=== PATIENT | male | born 1960 | race Caucasian/White ===

== ENCOUNTER 2020-02-29 11:12 | Inpatient (IN) | payer OTHER, SELFPAY ==
[2020-02-29] VITALS (27 sets, daily range): BP systolic 110–141; BP diastolic 56–82; PULSE 72–105; RESP 11–24; TEMP 36.3–38.3; O2SAT 92–99; BMI 45.1
--- NOTE | 2020-02-29 | PATH_ITS ---
[facility] Accession Number: [id number] . 01 Material submitted: . appendix - APPENDIX . 02 Diagnosis: Appendix, Appendectomy: Acute suppurative appendicitis with serositis. Negative for dysplasia and malignancy. V 03/02/2020 1235 Local . 02 Electronically signed: . Jelena Mg MD, Pathologist NPI- [id number] . 01 Gross description: . Received in formalin, labeled appendix, is an intact appendix (length-6.8 cm, diameter-1.0 cm) with ulloa-pink, dull, smooth, focally exudate-covered serosa with attached mesoappendix (up to 2.5 cm in depth). The resection margin is received open. The lumen is void of contents. The wall is up to 0.1 cm thick. No nodules, masses or lesions are identified. The resection margin is inked blue. Section code: (A1) resection margin en face and four industrial relations representative serial sections; (A2) the bivalved tip, entirely submitted. ([id number]) /MRV 03/01/2020 1030 Local . 02 Pathologist provided ICD-10: K35.80 . 02 CPT . 138211 Performed at: 01 [facility] [address], [place], [place] [id number] MD Vince London MD Phone: [phone] Performed at: [address] [facility] [address] [place], [place] [id number] MD Jelena Mg MD Phone: [phone]
--- NOTE | 2020-02-29 11:56 | ED.ABDPAIN ---
HPI - Abdominal Pain <Regulo Martin [facility] - Last Filed: 02/29/20 13:56> General Chief Complaint: Abdominal Pain Stated Complaint: abdominal pressure/pain Time Seen by Provider: 02/29/20 11:30 Source: patient Mode of arrival: Ambulatory Limitations: no limitations History of Present Illness HPI narrative: This is a 59-year-old male, nonsmoker, who presents to ED with 2 day duration of abdominal discomfort. Patient reports hurts all over but worse in right lower quadrant pain. Patient reports he now has constant dull throbbing abdominal pain with intermittent sharp pain in right lower quadrant. Patient reports nausea but no vomiting. Reports pain worse with movement, walking, getting in and out of bed. Last night pain was so bad he was doubled up until 3:00 a.m.. Patient reports none appetite and after he had last meal at 3:00 p.m. yesterday pain became worse. Last bowel movement was yesterday in small amount and he usually has bowel movements good bowel movements twice a day on the clock. Patient reports previous surgery as prostate and had surgery 12 years ago. At that time, patient had urinary retention and lost bladder elasticity and now he self cath himself in the morning and evening twice a day. Patient denies other urinary symptoms. Patient is visiting his son and family from [place]. Related Data Allergies Allergy/AdvReac Type Severity Reaction Status Date / Time No Known Drug Allergies Allergy Verified 02/29/20 11:29 Review of Systems <Regulo Martin [facility] - Last Filed: 02/29/20 13:56> Review of Systems Narrative: General: Denies fever, chills, fatigue, malaise, sweats. HEENT: Denies sinus pain, ear pain, sore throat, difficulty swallowing, dizziness. Respiratory: Denies dyspnea, cough, wheezing, hemoptysis, sputum. Cardiovascular: Denies chest pain, palpitations, orthopnea, edema. Gastrointestinal: See HPI : Denies dysuria, frequency, incontinence, hematuria, urinary retention. Musculoskeletal: Denies weakness, joint pain or bony pain. Skin: Denies rash, skin lesions, or other. Neurologic: Denies weakness, headache, numbness, change in speech, confusion, seizures, incoordination. Psychiatric: No concerning psychosocial issues. 12-point review of systems is negative except for those stated above. Patient History <KARENA Hartman - Last Filed: 02/29/20 13:56> Medical History Urinary retention (Acute) Surgical History History of prostate surgery (Acute) Social History Smoking Status: Never smoker Smoking Status: Never smoker alcohol intake frequency: a few times a week Alcohol type: beer Substance Use Type: does not use Exam <KARENA Hartman - Last Filed: 02/29/20 13:56> Narrative Exam Narrative: GEN: Alert, oriented x 3, well appearing and nourished, and in no acute distress. Head: Normal cephalic, atraumatic. No scalp or temporal tenderness, palpable mass or rash. EYES: Pupils are equal, round, and reactive to light and accommodation. Extraocular muscles are intact bilaterally. There is no subconjunctival hemorrhage, exudate and sclera non-icteric. ENT: Hearing grossly intact. Nose without bleeding, purulent discharge or deviation. Facial sinuses nontender to palpate. Mucous membrane moist, no mucosal lesion. Throat without erythema, tonsillar hypertrophy or exudate. Uvula in midline, airway patent. Neck: Trachea in midline. No JVD, non-tender without lymphadenopathy. No masses or thyroid megaly. Supple, non-tender and no meningeal signs. CARDIAC: Normal regular rate and rhythm without murmurs, gallops, or rubs. No chest wall tenderness. No peripheral edema, cyanosis or pallor. Capillary refill is less than 2 seconds. RESPIRATORY: Lungs are clear to auscultate bilaterally. No cough, wheezes, rales, or rhonchi. No stridor, respiratory distress, increase work of breathing, or accessary muscle used. ABD: Abdomen soft, tender to palpate in right quadrants and rebound tenderness in right mid and low quadrants. No guarding.. Bowel sounds are normal in all 4 quadrants. There is no palpable masses or organomegaly. EXT: Full painless ROM of all extremities with no loss of sensation, strength, effusion or edema. SKIN: Warm, dry, normal color for patient. No erythema, lesions or rash over visible areas. BACK: Nontender without deformity or crepitance. No flank tenderness. NEUROLOGICAL: Alert and oriented to place, time and person. Sensation and motor function intact bilaterally. No facial droops, dysphasia. PSYCHIATRIC: Good judgement and reason, without hallucinations, abnormal affect or abnormal behaviors during the examination. Initial Vital Signs Initial Vital Signs: Vital Signs Temperature 99.7 F H 02/29/20 11:23 Pulse Rate 89 02/29/20 11:23 Respiratory Rate 22 02/29/20 11:23 Blood Pressure 141/75 H 02/29/20 11:23 Pulse Oximetry 99 02/29/20 11:23 <Sanjay Stevenson DO - Last Filed: 02/29/20 14:19> Initial Vital Signs Initial Vital Signs: Vital Signs Temperature 99.7 F H 02/29/20 11:23 Pulse Rate 89 02/29/20 11:23 Respiratory Rate 22 02/29/20 11:23 Blood Pressure 141/75 H 02/29/20 11:23 Pulse Oximetry 99 02/29/20 11:23 Scores <KARENA Hartman - Last Filed: 02/29/20 13:56> GCS Alian coma scale eye opening: Spontaneous Alina coma scale verbal response: Orientated Alina coma scale motor response: Obey commands Dunlap coma scale total score: 15 Course <KARENA Hartman - Last Filed: 02/29/20 13:56> Course Decision to Admit Date: 02/29/20 Decision to Admit time: 13:35 Orders Ordered: ED Orders 02/29/20 11:30 EKG-12 Lead Stat 02/29/20 12:00 Complete Blood Count AUTO DIFF Stat Comprehensive Metabolic Panel Stat Lactate (Lactic Acid) Stat Lipase Stat Partial Thromboplastin Time Stat Prothrombin Time INR Stat 02/29/20 12:35 CT abdomen pelvis w con Stat Sodium Chloride (Normal Saline 0.9%) 1,000 mls @ 150 mls/hr IV CONT YURIDIA Last Admin: 02/29/20 14:17 Dose: 150 mls/hr Documented by: YDAY Discontinued Medications Piperacillin/Tazobactam/Dextrose (Zosyn) 3.375 gm in 50 mls @ 100 mls/hr IV NOW ONE Stop: 02/29/20 14:02 Last Admin: 02/29/20 14:17 Dose: 100 mls/hr Documented by: JESÚS Ketorolac Tromethamine (Toradol) 15 mg IV NOW ONE Stop: 02/29/20 11:53 Last Admin: 02/29/20 12:53 Dose: 15 mg Documented by: CHARLA Consultations Consultation #1: Dr. Abdi kindly accepted the patient for acute appendicitis for OR later today and admit the patient to medical in-pt Time: 13:37 Vital Signs Vital signs: Vital Signs - 8 hr 02/29/20 11:23 02/29/20 11:30 02/29/20 12:00 Temperature 99.7 F H Pulse Rate 89 82 86 Respiratory Rate 22 12 24 Blood Pressure 141/75 H Blood Pressure [Right Arm] 134/71 128/77 Pulse Oximetry 99 96 99 02/29/20 12:30 02/29/20 13:30 Temperature Pulse Rate 81 76 Respiratory Rate 17 17 Blood Pressure Blood Pressure [Right Arm] 133/66 128/71 Pulse Oximetry 96 99 <Sanjay Stevenson DO - Last Filed: 02/29/20 14:19> Orders Ordered: ED Orders 02/29/20 11:30 EKG-12 Lead Stat 02/29/20 12:00 Complete Blood Count AUTO DIFF Stat Comprehensive Metabolic Panel Stat Lactate (Lactic Acid) Stat Lipase Stat Partial Thromboplastin Time Stat Prothrombin Time INR Stat 02/29/20 12:35 CT abdomen pelvis w con Stat Sodium Chloride (Normal Saline 0.9%) 1,000 mls @ 150 mls/hr IV CONT YURIDIA Last Admin: 02/29/20 14:17 Dose: 150 mls/hr Documented by: JESÚS Discontinued Medications Piperacillin/Tazobactam/Dextrose (Zosyn) 3.375 gm in 50 mls @ 100 mls/hr IV NOW ONE Stop: 02/29/20 14:02 Last Admin: 02/29/20 14:17 Dose: 100 mls/hr Documented by: JESÚS Ketorolac Tromethamine (Toradol) 15 mg IV NOW ONE Stop: 02/29/20 11:53 Last Admin: 02/29/20 12:53 Dose: 15 mg Documented by: CHARLA Vital Signs Vital signs: Vital Signs - 8 hr 02/29/20 11:23 02/29/20 11:30 02/29/20 12:00 Temperature 99.7 F H Pulse Rate 89 82 86 Respiratory Rate 22 12 24 Blood Pressure 141/75 H Blood Pressure [Right Arm] 134/71 128/77 Pulse Oximetry 99 96 99 02/29/20 12:30 02/29/20 13:30 Temperature Pulse Rate 81 76 Respiratory Rate 17 17 Blood Pressure Blood Pressure [Right Arm] 133/66 128/71 Pulse Oximetry 96 99 MDM - Abdominal Pain <Regulo KARENA Martin - Last Filed: 02/29/20 13:56> Differential Diagnosis Differential diagnosis: Likely acute appendicitis and small bowel obstruction Medical Records Attestation: I reviewed the patient's medical records. Lab Data Attestation: I reviewed the patient's lab results. Result diagrams: 02/29/20 12:00 02/29/20 12:00 Labs: Lab Results 02/29/20 02/29/20 02/29/20 Range/Units 12:00 12:00 12:00 WBC 12.5 H (4.5-11.0) X10^3/uL RBC 5.06 (4.5-5.9) X10^6/uL Hgb 15.2 (13.5-17.5) g/dL Hct 44.0 (41-53) % MCV 86.9 (80-100) fL MCH 30.1 (26-34) PG MCHC 34.6 (30-36) % RDW 12.3 (11.6-14.8) % Plt Count 178 (150-400) X10^3/uL Neut % (Auto) 84.2 H (50-75) % Lymph % (Auto) 7.2 L (25-40) % [place] % (Auto) 8.0 (3-14) % Eos % (Auto) 0.1 L (2-4) % Baso % (Auto) 0.5 (0-2) % Neut # (Auto) 48810 H (7979-1313) /uL Lymph # (Auto) 900 L (6681-4223) /uL [place] # (Auto) 1000 H (0-900) /uL Eos # (Auto) 0 (0-450) /uL Baso # (Auto) 100 (0-100) /uL PT 13.0 H (10.1-12.7) SECONDS INR 1.1 (0.9-1.3) APTT 35 (26.4-36.2) SECONDS Sodium 135 L (137-145) mmol/L Potassium 4.1 (3.4-5.1) mmol/L Chloride 101 (98-107) mmol/L Carbon Dioxide 25 (22-32) mmol/L BUN 15 (9-20) mg/dL Creatinine 0.73 (0.66-1.25) mg/dL Estimated GFR > 60.0 (>60) mL/min BUN/Creatinine Ratio 20.5 (6-22) Glucose 110 H (70-100) mg/dL Lactate (0.7-2.1) mmol/L Calcium 9.4 (8.4-10.2) mg/dL Total Bilirubin 0.7 (0.2-1.3) mg/dL AST 18 (17-59) IU/L ALT 17 (<50) IU/L Alkaline Phosphatase 45 (38-126) U/L Total Protein 7.4 (6.3-8.2) g/dL Albumin 4.3 (3.5-5.0) g/dL Globulin 3.1 (1.7-4.1) g/dL Albumin/Globulin Ratio 1.4 (1.0-2.8) Lipase 33 (23-300) U/L 02/29/20 Range/Units 12:00 WBC (4.5-11.0) X10^3/uL RBC (4.5-5.9) X10^6/uL Hgb (13.5-17.5) g/dL Hct (41-53) % MCV (80-100) fL MCH (26-34) PG MCHC (30-36) % RDW (11.6-14.8) % Plt Count (150-400) X10^3/uL Neut % (Auto) (50-75) % Lymph % (Auto) (25-40) % [place] % (Auto) (3-14) % Eos % (Auto) (2-4) % Baso % (Auto) (0-2) % Neut # (Auto) (8762-4146) /uL Lymph # (Auto) (8925-6900) /uL [place] # (Auto) (0-900) /uL Eos # (Auto) (0-450) /uL Baso # (Auto) (0-100) /uL PT (10.1-12.7) SECONDS INR (0.9-1.3) APTT (26.4-36.2) SECONDS Sodium (137-145) mmol/L Potassium (3.4-5.1) mmol/L Chloride (98-107) mmol/L Carbon Dioxide (22-32) mmol/L BUN (9-20) mg/dL Creatinine (0.66-1.25) mg/dL Estimated GFR (>60) mL/min BUN/Creatinine Ratio (6-22) Glucose (70-100) mg/dL Lactate 1.3 (0.7-2.1) mmol/L Calcium (8.4-10.2) mg/dL Total Bilirubin (0.2-1.3) mg/dL AST (17-59) IU/L ALT (<50) IU/L Alkaline Phosphatase (38-126) U/L Total Protein (6.3-8.2) g/dL Albumin (3.5-5.0) g/dL Globulin (1.7-4.1) g/dL Albumin/Globulin Ratio (1.0-2.8) Lipase (23-300) U/L Imaging Data CT scan - abdomen/pelvis: Radiologist's Impression: [place] [address] CT Scan Report Signed Patient: Joshua Baig [facility]#: [id number] : 2Acct:[id number] Age/Sex: 59 / MDate of Service: 02/29/20 Loc: ED Accession Number: [id number] Procedure: CT abdomen pelvis w con Ordering Provider: Regulo Martin PROCEDURE: CT ABDOMEN PELVIS W CON INDICATIONS: RLQ pain, mild fever, nausea TECHNIQUE: After the administration of intravenous contrast, 5 mm thick sections acquired from the diaphragm to the symphysis. 5 mm coronal and sagittal reformats were acquired. For radiation dose reduction, the following was used: automated exposure control, adjustment of mA and/or kV according to patient size. COMPARISON: None. FINDINGS: Image quality: Excellent. ABDOMEN: Lung bases: Bibasilar atelectasis. No pleural effusion. Heart size is normal. Solid organs: Liver is normal in size. Question of hepatic steatosis. Gallbladder is unremarkable. Biliary system is non dilated. Pancreas enhances normally. Spleen is normal in size and enhancement. No adrenal nodules. Kidneys demonstrate normal size and enhancement, without hydronephrosis. Peritoneum and bowel: The appendix is dilated up to 2 cm (). There is surrounding inflammatory change and trace fluid. No extraluminal gas. No appendicolith. No small bowel obstruction. Nodes and vessels: No retroperitoneal or mesenteric adenopathy by size criteria. Aorta and inferior vena cava are normal in size. Miscellaneous: Tiny periumbilical fat-containing hernia. 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 PELVIS: Genitourinary: Bladder wall thickness is normal. Prostatomegaly. Miscellaneous: No inguinal hernias or adenopathy. Bones: No suspicious bony lesions. No vertebral body compression fractures. DDD. IMPRESSION: Acute appendicitis, moderate severity. No abscess or extra luminal gas. Dictated by: Ty Wilson M.D. on 02/29/2020 at 13:02 Approved by: Ty Wilson M.D. on 02/29/2020 at 13:07 ECG Data Attestation: I personally reviewed and interpreted this ECG as follows: Prior ECG tracings: not available for review Interpretation: Sinus rhythm rate at 83. UT int 160, QRS dur 105, QT/QTc 331/371. No ST elevation or depression. [facility] Narrative Medical decision making narrative: Abominal exam appreciated right mid and lower quadrant pain to palpate with rebound tenderness. Mildly elevated temperature to 99.7 with normotensive without tachycardia. Leukocytosis of 12.5 with neutrophil elevation. Normal lactate of 1.3. Abdominal CT indicates acute appendicitis without abscess extra luminal gas. There is no small-bowel obstructions. Patient's pain was managed with IV Toradol. Patient is being hydrated with normal saline at 150 mL/hour. Started Zosyn IV antibiotic medication as Dr. Abdi's request. Dr. Abdi kindly accepted patient's care for operation later today. Findings and plan were discussed with the patient and patient agrees with treatment plan. Rapid Covid test added for preop. <Sanjay Stevenson, - Last Filed: 02/29/20 14:19> Lab Data Labs: Lab Results 06/08/20 06/08/20 06/08/20 Range/Units 12:00 12:00 12:00 WBC 12.5 H (4.5-11.0) X10^3/uL RBC 5.06 (4.5-5.9) X10^6/uL Hgb 15.2 (13.5-17.5) g/dL Hct 44.0 (41-53) % MCV 86.9 (80-100) fL MCH 30.1 (26-34) PG MCHC 34.6 (30-36) % RDW 12.3 (11.6-14.8) % Plt Count 178 (150-400) X10^3/uL Neut % (Auto) 84.2 H (50-75) % Lymph % (Auto) 7.2 L (25-40) % [place] % (Auto) 8.0 (3-14) % Eos % (Auto) 0.1 L (2-4) % Baso % (Auto) 0.5 (0-2) % Neut # (Auto) 45031 H (0782-7654) /uL Lymph # (Auto) 900 L (0766-1286) /uL [place] # (Auto) 1000 H (0-900) /uL Eos # (Auto) 0 (0-450) /uL Baso # (Auto) 100 (0-100) /uL PT 13.0 H (10.1-12.7) SECONDS INR 1.1 (0.9-1.3) APTT 35 (26.4-36.2) SECONDS Sodium 135 L (137-145) mmol/L Potassium 4.1 (3.4-5.1) mmol/L Chloride 101 (98-107) mmol/L Carbon Dioxide 25 (22-32) mmol/L BUN 15 (9-20) mg/dL Creatinine 0.73 (0.66-1.25) mg/dL Estimated GFR > 60.0 (>60) mL/min BUN/Creatinine Ratio 20.5 (6-22) Glucose 110 H (70-100) mg/dL Lactate (0.7-2.1) mmol/L Calcium 9.4 (8.4-10.2) mg/dL Total Bilirubin 0.7 (0.2-1.3) mg/dL AST 18 (17-59) IU/L ALT 17 (<50) IU/L Alkaline Phosphatase 45 (38-126) U/L Total Protein 7.4 (6.3-8.2) g/dL Albumin 4.3 (3.5-5.0) g/dL Globulin 3.1 (1.7-4.1) g/dL Albumin/Globulin Ratio 1.4 (1.0-2.8) Lipase 33 (23-300) U/L 02/29/20 Range/Units 12:00 WBC (4.5-11.0) X10^3/uL RBC (4.5-5.9) X10^6/uL Hgb (13.5-17.5) g/dL Hct (41-53) % MCV (80-100) fL MCH (26-34) PG MCHC (30-36) % RDW (11.6-14.8) % Plt Count (150-400) X10^3/uL Neut % (Auto) (50-75) % Lymph % (Auto) (25-40) % [place] % (Auto) (3-14) % Eos % (Auto) (2-4) % Baso % (Auto) (0-2) % Neut # (Auto) (1956-4116) /uL Lymph # (Auto) (1322-7069) /uL [place] # (Auto) (0-900) /uL Eos # (Auto) (0-450) /uL Baso # (Auto) (0-100) /uL PT (10.1-12.7) SECONDS INR (0.9-1.3) APTT (26.4-36.2) SECONDS Sodium (137-145) mmol/L Potassium (3.4-5.1) mmol/L Chloride (98-107) mmol/L Carbon Dioxide (22-32) mmol/L BUN (9-20) mg/dL Creatinine (0.66-1.25) mg/dL Estimated GFR (>60) mL/min BUN/Creatinine Ratio (6-22) Glucose (70-100) mg/dL Lactate 1.3 (0.7-2.1) mmol/L Calcium (8.4-10.2) mg/dL Total Bilirubin (0.2-1.3) mg/dL AST (17-59) IU/L ALT (<50) IU/L Alkaline Phosphatase (38-126) U/L Total Protein (6.3-8.2) g/dL Albumin (3.5-5.0) g/dL Globulin (1.7-4.1) g/dL Albumin/Globulin Ratio (1.0-2.8) Lipase (23-300) U/L Discharge Plan Departure Patient Disposition: Admitted As Inpatient Clinical Impression: Acute appendicitis Qualifiers: Acute appendicitis type: unspecified acute appendicitis type Qualified Code(s): K35.80 - Unspecified acute appendicitis Discharge Date/Time: 02/29/20 13:54 Admit Date/Time: 02/29/20 13:46 Admit Provider: Lionel Abdi <Sanjay Stevenson, - Last Filed: 02/29/20 14:19> Cosign ED Attending Cosignature Attestation: Dr Stevenson Co-Sign Statement: I was available for consultation during this patient's emergency department visit. This chart is signed by myself for administrative purposes only. I did not have direct contact with this patient during this visit. They were seen independently by the APC.
[2020-02-29 12:08] LABS: Add Manual Diff / Slide Review NO; Basophils Absolute Auto 100 /uL (0-100); Basophils Percent Auto 0.5 % (0-2); Eosinophils Absolute Auto 0 /uL (0-450); Eosinophils Percent Auto 0.1 % (2-4); Hemoglobin 15.2 g/dL (13.5-17.5); Lymphocytes Absolute Auto 900 /uL (1100-4500); Lymphocytes Percent Auto 7.2 % (25-40); Mean Corpuscular HGB Conc 34.6 % (30-36); Mean Corpuscular Hemoglobin 30.1 PG (26-34); Mean Corpuscular Volume 86.9 fL (80-100); Monocytes Absolute Auto 1000 /uL (0-900); Neutrophils Absolute Auto 10500 /uL (1500-7000); Neutrophils Percent Auto 84.2 % (50-75); Platelet Count 178 X10^3/uL (150-400); Red Blood Cell Count 5.06 X10^6/uL (4.5-5.9); Red Cell Distribution Width 12.3 % (11.6-14.8); White Blood Cell Count 12.5 X10^3/uL (4.5-11.0)
[2020-02-29 12:15] LABS: INR 1.1 (0.9-1.3)
[2020-02-29 12:18] LABS: PTT Partial Thromboplastin Tim 35 SECONDS (26.4-36.2)
[2020-02-29 12:19] LABS: Alanine Aminotransferase 17 IU/L (<50); Albumin 4.3 g/dL (3.5-5.0); Albumin Globulin Ratio 1.4 (1.0-2.8); Alkaline Phosphatase 45 U/L (38-126); Aspartate Aminotransferase 18 IU/L (17-59); BUN Creatinine Ratio 20.5 (6-22); Bilirubin Total 0.7 mg/dL (0.2-1.3); Blood Urea Nitrogen 15 mg/dL (9-20); Calcium 9.4 mg/dL (8.4-10.2); Carbon Dioxide 25 mmol/L (22-32); Chloride 101 mmol/L (98-107); Estimated Glomerular Filt Rate > 60.0 mL/min (>60); Globulin 3.1 g/dL (1.7-4.1); Glucose 110 mg/dL (70-100); HEMOLYSIS 26 (0-50); Lipase 33 U/L (23-300); Potassium 4.1 mmol/L (3.4-5.1); Sodium 135 mmol/L (137-145); Total Protein 7.4 g/dL (6.3-8.2)
[2020-02-29 12:21] LABS: Lactate (Lactic Acid) 1.3 mmol/L (0.7-2.1)
--- NOTE | 2020-02-29 12:35 | DI.CT.S_ITS ---
PROCEDURE: CT ABDOMEN PELVIS W CON INDICATIONS: RLQ pain, mild fever, nausea TECHNIQUE: After the administration of intravenous contrast, 5 mm thick sections acquired from the diaphragm to the symphysis. 5 mm coronal and sagittal reformats were acquired. For radiation dose reduction, the following was used: automated exposure control, adjustment of mA and/or kV according to patient size. COMPARISON: None. FINDINGS: Image quality: Excellent. ABDOMEN: Lung bases: Bibasilar atelectasis. No pleural effusion. Heart size is normal. Solid organs: Liver is normal in size. Question of hepatic steatosis. Gallbladder is unremarkable. Biliary system is non dilated. Pancreas enhances normally. Spleen is normal in size and enhancement. No adrenal nodules. Kidneys demonstrate normal size and enhancement, without hydronephrosis. Peritoneum and bowel: The appendix is dilated up to 2 cm (). There is surrounding inflammatory change and trace fluid. No extraluminal gas. No appendicolith. No small bowel obstruction. Nodes and vessels: No retroperitoneal or mesenteric adenopathy by size criteria. Aorta and inferior vena cava are normal in size. Miscellaneous: Tiny periumbilical fat-containing hernia. 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 PELVIS: Genitourinary: Bladder wall thickness is normal. Prostatomegaly. Miscellaneous: No inguinal hernias or adenopathy. Bones: No suspicious bony lesions. No vertebral body compression fractures. DDD. IMPRESSION: Acute appendicitis, moderate severity. No abscess or extra luminal gas. Dictated by: Ty Wilson M.D. on 02/29/2020 at 13:02 Approved by: Ty Wilson M.D. on 02/29/2020 at 13:07
[2020-02-29] MEDS: KETOROLAC 60 MG/2 ML VIAL 15 MG IV (12:53)
--- NOTE | 2020-02-29 13:55 | PC.NURSE ---
Day shift: On unit fro ED at approx 1400. Pain 2/10 at this time. Pt is calm and cooperative. Oriented to room and call light. He is steady on his feet. Surgery today is planned (lap appy).
[2020-02-29] MEDS: SODIUM CHLORIDE 0.9% 1,000 ML 150 ML IV ×2 (14:17→20:01)
[2020-02-29] MEDS: PIPERACILLIN-TAZO 3.375 GM/50 ML FROZ.PIGGY IV ×2 (14:17→21:19)
[2020-02-29 14:43] LABS: COVID19 -Nasal RAPID Negative (Negative)
--- NOTE | 2020-02-29 15:15 | P.HP_ITS ---
History of Present Illness History of Present Illness Date Patient Seen: 02/29/20 Time Patient Seen: 15:38 Chief complaint: abdominal pressure/pain Narrative: 59-year-old man who presents with acute appendicitis. He had some of a abdominal pain for the past 2 days and then became increasingly more severe and focus to the right lower quadrant. No nausea vomiting or fever he does endorse and anorexia. No prior intestinal surgery. He had a prostatectomy for chronic urinary retention and he self catheterizes twice per day currently. Past medical history is significant for obesity. He is a nonsmoker and not on anticoagulation. Patient History Medical History Urinary retention (Acute) Surgical History History of prostate surgery (Acute) Family & Social History Social History: household members spouse Prior Living Arrangements House Safety & Behavioral: Feels Safe in Current Yes Environment Been Physically Hurt or No Threatened By a Person Suicidal Ideation Description None Tobacco & Substance use: Smoking Status Never smoker alcohol intake frequency a few times a week Substance Use Type does not use Meds Home Medications and Allergies Allergies Allergy/AdvReac Type Severity Reaction Status Date / Time No Known Drug Allergies Allergy Verified 02/29/20 15:27 Review of Systems Review of Systems Narrative: A 10 point review of systems is negative except as noted in the HPI Exam Vital Signs (past 8 hours): - 02/29/20 11:23 02/29/20 11:30 02/29/20 12:00 Temperature 99.7 F H Pulse Rate 89 82 86 Respiratory Rate 22 12 24 Blood Pressure 141/75 H Blood Pressure [Right Arm] 134/71 128/77 Pulse Oximetry 99 96 99 02/29/20 12:30 02/29/20 13:30 02/29/20 14:06 Temperature 98.8 F Pulse Rate 81 76 93 H Respiratory Rate 17 17 16 Blood Pressure 133/78 Blood Pressure [Right Arm] 133/66 128/71 Pulse Oximetry 96 99 98 Oxygen Delivery Method Room Air Oxygen Flow Rate 0 Narrative Exam Narrative: General-no acute distress, obese male HEENT-moist mucous membranes, no scleral icterus Neck-supple, no lymphadenopathy Chest- non labored respirations, clear to auscultation bilaterally Cardiac-regular rate no peripheral edema Abdomen-tender to palpation right lower quadrant. Extremities-warm, well perfused Neurological-alert and oriented, no focal deficits Objective Labs Result Diagrams: 02/29/20 12:00 02/29/20 12:00 Labs: Laboratory Results - last 24 hr 02/29/20 02/29/20 02/29/20 12:00 12:00 12:00 WBC 12.5 H RBC 5.06 Hgb 15.2 Hct 44.0 MCV 86.9 MCH 30.1 MCHC 34.6 RDW 12.3 Plt Count 178 Neut % (Auto) 84.2 H Lymph % (Auto) 7.2 L [place] % (Auto) 8.0 Eos % (Auto) 0.1 L Baso % (Auto) 0.5 Neut # (Auto) 39267 H Lymph # (Auto) 900 L [place] # (Auto) 1000 H Eos # (Auto) 0 Baso # (Auto) 100 PT 13.0 H INR 1.1 APTT 35 Sodium 135 L Potassium 4.1 Chloride 101 Carbon Dioxide 25 BUN 15 Creatinine 0.73 Estimated GFR > 60.0 BUN/Creatinine Ratio 20.5 Glucose 110 H Lactate Calcium 9.4 Total Bilirubin 0.7 AST 18 ALT 17 Alkaline Phosphatase 45 Total Protein 7.4 Albumin 4.3 Globulin 3.1 Albumin/Globulin Ratio 1.4 Lipase 33 COVID-19 PCR 02/29/20 02/29/20 12:00 13:45 WBC RBC Hgb Hct MCV MCH MCHC RDW Plt Count Neut % (Auto) Lymph % (Auto) [place] % (Auto) Eos % (Auto) Baso % (Auto) Neut # (Auto) Lymph # (Auto) [place] # (Auto) Eos # (Auto) Baso # (Auto) PT INR APTT Sodium Potassium Chloride Carbon Dioxide BUN Creatinine Estimated GFR BUN/Creatinine Ratio Glucose Lactate 1.3 Calcium Total Bilirubin AST ALT Alkaline Phosphatase Total Protein Albumin Globulin Albumin/Globulin Ratio Lipase COVID-19 PCR Negative Assessment & Plan Assessment and plan (1) Acute appendicitis: Qualifiers: Acute appendicitis type: unspecified acute appendicitis type Qualified Code(s): K35.80 - Unspecified acute appendicitis Status: Acute Assessment & Plan narrative: Joshua is a 59-year-old man who presents with acute appendicitis x [address] abdomen pelvis which demonstrates acute appendicitis without abscess. Recommended that we proceed with a laparoscopic appendectomy. I discussed the technical nature of the procedure wi th him the operative risk of bleeding infection intestinal perforation. His questions have been answered he is in agreement with this plan will proceed to the operating room. Quality VTE Deep Vein Thrombosis/Pulmonary Embolism Present on Admission: No
[2020-02-29] MEDS: fentaNYL 100 MCG/2 ML INJ 50 MCG IV (15:38)
--- NOTE | 2020-02-29 16:29 | SUR.OPER ---
Supine on padded OR bed, head on pillow, arms secured on padded arm boards at <90 degrees abduction, legs uncrossed, safety belt at thigh, tape over blanket over lower legs.
[2020-02-29] MEDS: BUPIVACAINE 0.5% (PF) VIAL 30 ML INJ (16:39)
[2020-02-29] MEDS: LACTATED RINGERS 1,000 ML 42 ML IV (17:14)
[2020-02-29] MEDS: fentaNYL 100 MCG/2 ML INJ IV (18:32)
--- NOTE | 2020-02-29 18:33 | PM.OP.1 ---
Operative Date/Time/Diagnoses Date of procedure: 02/29/20 Time of procedure: 18:33 Pre-op diagnosis: Acute appendicitis Post-op diagnosis: same Procedure & Clinicians Procedure: Laparoscopic appendectomy Same procedure as scheduled: Yes Indications: [address] hours of abdominal pain CT confirms acute appendicitis without abscess Surgeon: Lionel Abdi Click Yes if Unassisted: Yes Anesthesia Type: General Operative Notes Findings: Perforated retrocecal appendix densely adherent to the small bowel and cecum. Several free pieces of stool within the abdomen and a healthy appearing base Specimen(s): other (Appendix) Estimated Blood Loss (mL): 50 Procedure in detail: Patient was brought to the operating room placed supine on the table. Bilateral lower extremity compression devices were applied. They were induced and intubated with an endotracheal tube. They received 3.375 g of Zosyn prior to skin incision. They were prepped and draped in sterile fashion. Time-out was performed to ensure the correct patient procedure necessary equipment within the operating room. The skin was infiltrated with 0.25% bupivacaine. A infraumbilical incision was made the umbilical stalk was grasped and elevated and incision was made and the abdomen was entered atraumatically. A 12 mm balloon trocar was then placed into the incision and pneumoperitoneum was established. The scope was then inspected abdomen inspected and there was no evidence of injury upon entry, there was purulent fluid within the abdomen. Two 5 mm working ports were then placed supra pubic and in the left lower quadrant. The small bowel was then swept to the upper aspect of the abdomen. The tenie were followed to the base of the cecum. The appendix was densely adherent to the terminal ileum and the cecum within a matted mass of inflammatory rind. The appendix was partially retrocecal and I mobilized the cecum medially in order to completely expose it by incising the white line of Toldt. The appendix was carefully dissected away from the inflammatory attachments to to the cecum and terminal ileum. Examination of the base of the appendix demonstrated that the appendix was perforated and transected from its base. The base of the appendix was controlled by stapling across it using the GAYLE stapler blue load 45 mm. The base of the appendix was healthy. I followed the lumen of the appendix proximally and it was dissected free to the tip. The mesoappendix was carefully dissected and the appendiceal vessels were cauterized with the [place]. The appendix was then free in its entirety and was removed using the Endo-Catch. Several pieces of stool were were found in the abdomen and these were removed. The abdomen was then copiously lavaged with at least 5 L of normal saline and the return was serous. Hemostasis was observed. The staple line was inspected and was intact and hemostatic. Placed a 19 [place] Xiang drain through the suprapubic port into the right lower quadrant under direct visualization. The ports were then removed under direct visualization. The umbilical fascial incision was closed with 0 Vicryl in a figure-eight fashion. The skin wounds were irrigated and closed with Monocryl followed by the application of Dermabond. Sponge instrument count at the end of the operation was correct. The patient tolerated procedure well was extubated and transferred to the postoperative care unit in stable condition Complications: none Post-operative Condition: stable Disposition: Acute Care
[2020-02-29] MEDS: HYDROMORPHONE 2 MG INJ IV (18:36)
[2020-02-29] MEDS: OXYCODONE IR 5 MG TABLET PO (21:23)
--- NOTE | 2020-02-29 23:29 | PC.NURSE ---
Pt arrived on unit at approx 2024. He denied pain and nausea, able to eat 1/2 sandwich and coffee. CAROL output 30 mLs. VSS, A and O x 4. Later patient rated his pain 5/10 and had good results with 5 mg oxycodone. Pt straight caths.
[2020-03-01] VITALS (9 sets, daily range): BP systolic 106–135; BP diastolic 42–72; PULSE 69–94; RESP 16–18; TEMP 36.4–37.6; O2SAT 94–98
[2020-03-01] MEDS: SODIUM CHLORIDE 0.9% 1,000 ML 150 ML IV (02:24)
--- NOTE | 2020-03-01 05:47 | PC.NURSE ---
Pt is doing well. Denies any nausea. Complains of mild pain but not wanting any pain meds overnight so far. Hypoactive bowel tones. Does not report passing gas yet. Abdomen has lap sites that are surgi-glued and DORETHA. Look a bit red and purple but not concerning. Gauze to RLQ is clean dry and intact where the Hemovac drain is. NS@150mL/hr
[2020-03-01] MEDS: PIPERACILLIN-TAZO 3.375 GM/50 ML FROZ.PIGGY IV ×3 (05:55→22:01)
[2020-03-01] MEDS: OXYCODONE IR 5 MG TABLET PO ×6 (05:56→23:29)
[2020-03-01 06:48] LABS: Add Manual Diff / Slide Review NO; Basophils Absolute Auto 0 /uL (0-100); Basophils Percent Auto 0.2 % (0-2); Eosinophils Absolute Auto 0 /uL (0-450); Hematocrit 40.4 % (41-53); Hemoglobin 13.9 g/dL (13.5-17.5); Lymphocytes Absolute Auto 500 /uL (1100-4500); Lymphocytes Percent Auto 4.2 % (25-40); Mean Corpuscular HGB Conc 34.5 % (30-36); Mean Corpuscular Hemoglobin 29.9 PG (26-34); Mean Corpuscular Volume 86.7 fL (80-100); Monocytes Absolute Auto 800 /uL (0-900); Neutrophils Absolute Auto 11300 /uL (1500-7000); Neutrophils Percent Auto 89.6 % (50-75); Platelet Count 163 X10^3/uL (150-400); Red Blood Cell Count 4.66 X10^6/uL (4.5-5.9); Red Cell Distribution Width 12.5 % (11.6-14.8); White Blood Cell Count 12.6 X10^3/uL (4.5-11.0)
[2020-03-01 06:57] LABS: BUN Creatinine Ratio 21.4 (6-22); Blood Urea Nitrogen 18 mg/dL (9-20); Calcium 8.7 mg/dL (8.4-10.2); Carbon Dioxide 25 mmol/L (22-32); Chloride 104 mmol/L (98-107); Estimated Glomerular Filt Rate > 60.0 mL/min (>60); Glucose 145 mg/dL (70-100); HEMOLYSIS < 15 (0-50); Potassium 3.9 mmol/L (3.4-5.1); Sodium 135 mmol/L (137-145)
[2020-03-01] MEDS: ACETAMINOPHEN 325 MG TABLET 650 MG PO ×3 (08:58→16:23)
--- NOTE | 2020-03-01 09:17 | CM.DANOTE ---
Discharge Planning/Care Management DCP: assessment: Case received, EMR reviewed and met with pt and his Viviane. Introduced self and role. Pt is a 59 year old male who admitted here yesterday to care of [facility]: Dr. Orville Abdi. Went to surgery last evening: dx of acute appendicitis: perforated: laproscopic appendectomy. Payer: [employer] Admission status: In review by UR RN Pt states he drove here from [place] to assist his son Nabil and daughter-in law Gwendolyn with their child but instead here I am in the hospital. Viviane flew in last night and is here to help both the child and her during his recovery. Dr. Abdi joined the conversation then: explained to both the plan for IV antibiotics and that pt would d/c to home setting once he was able to eat, had no fever and labs were stabilizing. He plans for pt to d/c on oral antibiotics. P: as per above: DCP team will follow prn. CM Discharge Assessment Start: 03/01/20 09:16 Freq: Status: Active Protocol: Document 03/01/20 09:16 ITV (Rec: 03/01/20 09:17 ITV [id number]) Discharge Planning Assessment Advance Directives? No Advance Directives on File No History Provided By Patient,Family Member,Medical Record Has Patient been admitted in last 30 No days? Prior Living Arrangements House Household Members spouse Type of transporation used prior to Drives own vehicle admit Independent with ADL's Yes Is patient alert and oriented? Yes Review Status In Process
[2020-03-01] MEDS: DOCUSATE 100 MG CAPSULE PO ×2 (09:26→22:01)
[2020-03-01] MEDS: MAGNESIUM HYDROXIDE 30 ML UDC PO (09:26)
--- NOTE | 2020-03-01 11:03 | P.PN_ITS ---
Subjective Subjective Date Patient Seen: 03/01/20 Time Patient Seen: 11:03 Interval history: No acute overnight events. Tolerated regular diet without nausea vomiting no fevers overnight. 40 mL of serosanguineous drainage from intra-abdominal drain. Exam Vital Signs (past 8 hours): - 03/01/20 06:00 03/01/20 07:56 03/01/20 08:07 Temperature 99.6 F 97.6 F Pulse Rate 85 85 Respiratory Rate 18 16 Blood Pressure 106/42 L 108/65 Pulse Oximetry 95 98 95 Oxygen Delivery Method Room Air Oxygen Flow Rate 0 Narrative Exam Narrative: General adult male alert oriented no acute distress Abdomen soft appropriately tender to palpation incisions clean dry intact CAROL left lower quadrant with serosanguineous output. Objective Labs Result Diagrams: 03/01/20 06:37 03/01/20 06:37 Labs: Laboratory Results - last 24 hr 02/29/20 02/29/20 02/29/20 12:00 12:00 12:00 WBC 12.5 H RBC 5.06 Hgb 15.2 Hct 44.0 MCV 86.9 MCH 30.1 MCHC 34.6 RDW 12.3 Plt Count 178 Neut % (Auto) 84.2 H Lymph % (Auto) 7.2 L [place] % (Auto) 8.0 Eos % (Auto) 0.1 L Baso % (Auto) 0.5 Neut # (Auto) 01027 H Lymph # (Auto) 900 L [place] # (Auto) 1000 H Eos # (Auto) 0 Baso # (Auto) 100 PT 13.0 H INR 1.1 APTT 35 Sodium 135 L Potassium 4.1 Chloride 101 Carbon Dioxide 25 BUN 15 Creatinine 0.73 Estimated GFR > 60.0 BUN/Creatinine Ratio 20.5 Glucose 110 H Lactate Calcium 9.4 Total Bilirubin 0.7 AST 18 ALT 17 Alkaline Phosphatase 45 Total Protein 7.4 Albumin 4.3 Globulin 3.1 Albumin/Globulin Ratio 1.4 Lipase 33 COVID-19 PCR 02/29/20 02/29/20 03/01/20 12:00 13:45 06:37 WBC 12.6 H RBC 4.66 Hgb 13.9 Hct 40.4 L MCV 86.7 MCH 29.9 MCHC 34.5 RDW 12.5 Plt Count 163 Neut % (Auto) 89.6 H Lymph % (Auto) 4.2 L [place] % (Auto) 6.0 Eos % (Auto) 0.0 L Baso % (Auto) 0.2 Neut # (Auto) 28623 H Lymph # (Auto) 500 L [place] # (Auto) 800 Eos # (Auto) 0 Baso # (Auto) 0 PT INR APTT Sodium Potassium Chloride Carbon Dioxide BUN Creatinine Estimated GFR BUN/Creatinine Ratio Glucose Lactate 1.3 Calcium Total Bilirubin AST ALT Alkaline Phosphatase Total Protein Albumin Globulin Albumin/Globulin Ratio Lipase COVID-19 PCR Negative 03/01/20 06:37 WBC RBC Hgb Hct MCV MCH MCHC RDW Plt Count Neut % (Auto) Lymph % (Auto) [place] % (Auto) Eos % (Auto) Baso % (Auto) Neut # (Auto) Lymph # (Auto) [place] # (Auto) Eos # (Auto) Baso # (Auto) PT INR APTT Sodium 135 L Potassium 3.9 Chloride 104 Carbon Dioxide 25 BUN 18 Creatinine 0.84 Estimated GFR > 60.0 BUN/Creatinine Ratio 21.4 Glucose 145 H Lactate Calcium 8.7 Total Bilirubin AST ALT Alkaline Phosphatase Total Protein Albumin Globulin Albumin/Globulin Ratio Lipase COVID-19 PCR Assessment & Plan Post-op Postoperative Procedures: Procedures Operation Date: 02/29/20 15:45 Actual Procedures Side Surgeon p Laparoscopic Appendectomy Lionel Abdi MD Postoperative plan narrative: 59-year-old man postoperative day wound status post laparoscopic appendectomy for perforated appendicitis doing well. -regular diet DC IV fluids -continue Zosyn for perforated appendicitis -out of bed ambulate -drain teaching anticipate DC home likely tomorrow with drain for 1 week on p.o. antibiotics Quality VTE Deep Vein Thrombosis/Pulmonary Embolism Present on Admission: No
--- NOTE | 2020-03-01 16:22 | PC.NURSE ---
Addendum entered by Martita Baxter R.N. 03/01/20 22:17: Pt walked in hallway a third time, accompanied by spouse (low fall risk). Verbalizes positive flatus, bowel tones. Original Note: SHIFT: Report received, care assumed. Pt. c/o generalized abdominal tenderness, with occasional sharp (but fleeting) pains. Hypoactive bowel sounds. Pt. took two hallway walks today; encouraged to further ambulate. Also c/o positional neck pain; ice pack given. VSS. A&Ox4.
[2020-03-02] VITALS (7 sets, daily range): BP systolic 120–138; BP diastolic 69–77; PULSE 83–99; RESP 14–18; TEMP 36.8–37.9; O2SAT 93–97
[2020-03-02] MEDS: SODIUM CHLORIDE 0.9% FLUSH 10 ML IV ×2 (05:29→08:35)
[2020-03-02] MEDS: PIPERACILLIN-TAZO 3.375 GM/50 ML FROZ.PIGGY IV ×3 (05:30→21:49)
[2020-03-02] MEDS: OXYCODONE IR 5 MG TABLET PO ×3 (05:34→13:57)
[2020-03-02 06:33] LABS: Add Manual Diff / Slide Review NO; Basophils Absolute Auto 0 /uL (0-100); Basophils Percent Auto 0.3 % (0-2); Eosinophils Absolute Auto 0 /uL (0-450); Eosinophils Percent Auto 0.2 % (2-4); Hematocrit 38.7 % (41-53); Hemoglobin 13.1 g/dL (13.5-17.5); Lymphocytes Absolute Auto 1000 /uL (1100-4500); Lymphocytes Percent Auto 8.6 % (25-40); Mean Corpuscular HGB Conc 33.8 % (30-36); Mean Corpuscular Hemoglobin 29.9 PG (26-34); Mean Corpuscular Volume 88.4 fL (80-100); Monocytes Absolute Auto 800 /uL (0-900); Monocytes Percent Auto 7.5 % (3-14); Neutrophils Absolute Auto 9200 /uL (1500-7000); Neutrophils Percent Auto 83.4 % (50-75); Platelet Count 163 X10^3/uL (150-400); Red Blood Cell Count 4.38 X10^6/uL (4.5-5.9); Red Cell Distribution Width 12.7 % (11.6-14.8)
[2020-03-02 06:41] LABS: BUN Creatinine Ratio 21.8 (6-22); Blood Urea Nitrogen 19 mg/dL (9-20); Calcium 8.8 mg/dL (8.4-10.2); Carbon Dioxide 27 mmol/L (22-32); Chloride 101 mmol/L (98-107); Estimated Glomerular Filt Rate > 60.0 mL/min (>60); Glucose 123 mg/dL (70-100); HEMOLYSIS < 15 (0-50); Potassium 3.8 mmol/L (3.4-5.1); Sodium 135 mmol/L (137-145)
--- NOTE | 2020-03-02 10:17 | PM.PNPO.1 ---
Subjective Subjective Date Patient Seen: 03/02/20 Time Patient Seen: 10:17 Interval history: No acute overnight events. He is tolerating a small amount of regular diet no nausea vomiting. He feels mildly distended is not passing flatus. He is ambulating but having moderate amount of pain while doing so. Exam Vital Signs (past 8 hours): - 03/02/20 03:19 03/02/20 07:26 Temperature 98.8 F 98.2 F Pulse Rate 84 93 H Respiratory Rate 17 16 Blood Pressure 128/75 122/72 Pulse Oximetry 97 93 Oxygen Delivery Method Room Air Oxygen Flow Rate 0 Narrative Exam Narrative: General adult male alert oriented no acute distress Abdomen soft mildly distended CAROL drain with slightly murky serous fluid in scant in volume. Abdomen is appropriately tender to palpation Objective Labs Result Diagrams: 03/02/20 06:05 03/02/20 06:05 Labs: Laboratory Results - last 24 hr 03/02/20 03/02/20 06:05 06:05 WBC 11.0 RBC 4.38 L Hgb 13.1 L Hct 38.7 L MCV 88.4 MCH 29.9 MCHC 33.8 RDW 12.7 Plt Count 163 Neut % (Auto) 83.4 H Lymph % (Auto) 8.6 L [place] % (Auto) 7.5 Eos % (Auto) 0.2 L Baso % (Auto) 0.3 Neut # (Auto) 9200 H Lymph # (Auto) 1000 L [place] # (Auto) 800 Eos # (Auto) 0 Baso # (Auto) 0 Sodium 135 L Potassium 3.8 Chloride 101 Carbon Dioxide 27 BUN 19 Creatinine 0.87 Estimated GFR > 60.0 BUN/Creatinine Ratio 21.8 Glucose 123 H Calcium 8.8 Assessment & Plan Post-op Postoperative Procedures: Procedures Operation Date: 02/29/20 15:45 Actual Procedures Side Surgeon p Laparoscopic Appendectomy Lionel Abdi MD Postoperative status narrative: 59-year-old man postoperative day 2 status post laparoscopic appendectomy for perforated appendicitis. He is making a slow recovery but expected recovery. -regular diet -increase oxycodone dose to 10 mg -ambulate -continue Zosyn -SCDs and Lovenox for VT prophylaxis Quality VTE Deep Vein Thrombosis/Pulmonary Embolism Present on Admission: No
[2020-03-02] MEDS: OXYCODONE IR 5 MG TABLET 10 MG PO ×2 (17:50→21:52)
[2020-03-02] MEDS: ACETAMINOPHEN 325 MG TABLET 650 MG PO (23:45)
[2020-03-03] MEDS: OXYCODONE IR 5 MG TABLET 10 MG PO ×2 (00:52→14:13)
[2020-03-03 00:53] VITALS: TEMP 37.1
[2020-03-03 04:00] VITALS: BP 129/78; PULSE 85; RESP 18; TEMP 36.9; O2SAT 94
[2020-03-03] MEDS: ACETAMINOPHEN 325 MG TABLET 650 MG PO ×3 (04:03→14:13)
[2020-03-03] MEDS: OXYCODONE IR 5 MG TABLET PO ×2 (04:04→08:48)
[2020-03-03 05:32] LABS: BUN Creatinine Ratio 19.3 (6-22); Blood Urea Nitrogen 17 mg/dL (9-20); Calcium 8.8 mg/dL (8.4-10.2); Carbon Dioxide 27 mmol/L (22-32); Chloride 99 mmol/L (98-107); Estimated Glomerular Filt Rate > 60.0 mL/min (>60); Glucose 123 mg/dL (70-100); HEMOLYSIS < 15 (0-50); Potassium 3.7 mmol/L (3.4-5.1); Sodium 132 mmol/L (137-145)
[2020-03-03 05:33] LABS: Add Manual Diff / Slide Review NO; Basophils Absolute Auto 100 /uL (0-100); Basophils Percent Auto 0.6 % (0-2); Eosinophils Absolute Auto 100 /uL (0-450); Eosinophils Percent Auto 0.5 % (2-4); Hematocrit 39.1 % (41-53); Hemoglobin 13.6 g/dL (13.5-17.5); Lymphocytes Absolute Auto 1200 /uL (1100-4500); Lymphocytes Percent Auto 10.9 % (25-40); Mean Corpuscular HGB Conc 34.8 % (30-36); Mean Corpuscular Hemoglobin 30.5 PG (26-34); Mean Corpuscular Volume 87.6 fL (80-100); Monocytes Absolute Auto 900 /uL (0-900); Monocytes Percent Auto 8.5 % (3-14); Neutrophils Absolute Auto 8500 /uL (1500-7000); Neutrophils Percent Auto 79.5 % (50-75); Platelet Count 196 X10^3/uL (150-400); Red Blood Cell Count 4.46 X10^6/uL (4.5-5.9); Red Cell Distribution Width 12.5 % (11.6-14.8); White Blood Cell Count 10.6 X10^3/uL (4.5-11.0)
[2020-03-03] MEDS: PIPERACILLIN-TAZO 3.375 GM/50 ML FROZ.PIGGY IV (06:06)
[2020-03-03] MEDS: SODIUM CHLORIDE 0.9% FLUSH 10 ML IV ×2 (06:06→08:50)
[2020-03-03 08:00] VITALS: BP 122/73; PULSE 80; RESP 18; TEMP 36.4; O2SAT 97
[2020-03-03] MEDS: ENOXAPARIN 40 MG/0.4 ML SYRINGE SUBCUT (08:49)
[2020-03-03 12:00] VITALS: BP 135/73; PULSE 84; RESP 20; TEMP 36.6; O2SAT 96
--- NOTE | 2020-03-03 14:30 | CM.DPC ---
DCP Cont: Patient has tolerated regular diet, and is expected to go home today. He and his are from [place] here visiting family in this area. P: Patient is to be discharging home today with no barriers. Becky Rodriguez RN/Project Architect
--- NOTE | 2020-03-03 15:14 | P.DS_ITS ---
History of Present Illness History of Present Illness Chief complaint: abdominal pressure/pain Narrative: 59-year-old man who presents with acute appendicitis. He had some of a abdominal pain for the past 2 days and then became increasingly more severe and focus to the right lower quadrant. No nausea vomiting or fever he does endorse and anorexia. No prior intestinal surgery. He had a prostatectomy for chronic urinary retention and he self catheterizes twice per day currently. Past medical history is significant for obesity. He is a nonsmoker and not on anticoagulation. Discharge Providers Provider Date of admission: 02/29/20 13:46 Discharge Date: 03/03/20 Discharge provider: Lionel Abdi MD Summary Hospital Course Discharge Diagnosis: Perforated appendicitis Peritonitis Hospital Course: Patient presented with the acute appendicitis is taken to the operating room where he underwent a laparoscopic appendectomy. He was found to have perforated appendicitis with feculent peritonitis. Postoperatively he was rotated are IV Zosyn and had a gradual resumption of his diet. A intra- abdominal drain in the right lower quadrant was left and demonstrates serosanguineous output. On the date of discharge 03/03 his white blood cell count is 10 he is afebrile his tolerating a regular diet his pain is adequately controlled. He will be discharging home on 1 week course of Augmentin and he will follow up in 1 week time for likely drain removal. Status at Discharge Cognitive/behavioral status at discharge: oriented Functional status at discharge: independent ambulation Overall status at discharge: patient is progressing back to baseline Time Spent with Patient Time spent: Greater than 30 minutes Exam Vital Signs (past 8 hours): - 03/03/20 08:00 03/03/20 12:00 Temperature 97.6 F 97.9 F Pulse Rate 80 84 Respiratory Rate 18 20 Blood Pressure 122/73 135/73 Pulse Oximetry 97 96 Oxygen Delivery Method Room Air Oxygen Flow Rate 0 Narrative Exam Narrative: General adult male alert oriented no acute distress Abdomen soft appropriately tender to palpation right lower quadrant. CAROL drain with serosanguineous output. Extremities warm well perfused Objective Labs Result Diagrams: 03/03/20 05:10 03/03/20 05:10 Labs: Laboratory Results - last 24 hr 03/03/20 03/03/20 05:10 05:10 WBC 10.6 RBC 4.46 L Hgb 13.6 Hct 39.1 L MCV 87.6 MCH 30.5 MCHC 34.8 RDW 12.5 Plt Count 196 Neut % (Auto) 79.5 H Lymph % (Auto) 10.9 L [place] % (Auto) 8.5 Eos % (Auto) 0.5 L Baso % (Auto) 0.6 Neut # (Auto) 8500 H Lymph # (Auto) 1200 [place] # (Auto) 900 Eos # (Auto) 100 Baso # (Auto) 100 Sodium 132 L Potassium 3.7 Chloride 99 Carbon Dioxide 27 BUN 17 Creatinine 0.88 Estimated GFR > 60.0 BUN/Creatinine Ratio 19.3 Glucose 123 H Calcium 8.8 Discharge Plan Discharge Plan Patient Disposition: Home Discharge orders & Medications Prescriptions: New ibuprofen 200 mg tablet 800 mg PO Q6H PRN (Reason: pain) Qty: 60 RF: 0 docusate sodium [Colace] 100 mg capsule 100 mg PO BID Qty: 40 RF: 0 oxycodone 5 mg tablet 5 mg PO Q6H PRN (Reason: pain) Qty: 50 RF: 0 acetaminophen [Tylenol] 325 mg capsule 650 mg PO QID PRN (Reason: pain) Qty: 60 RF: 0 amoxicillin-pot clavulanate [Augmentin] 875-125 mg tablet 1 tab PO BID Qty: 14 RF: 0 Follow up/Referrals: Lionel Abdi MD [Physician] - 03/09/20 (Please call to confirm appointment time.) Diet/Activity/Treatments Diet: Regular Activity: No lifting >20 lbs x 4 weeks. Walking only for exercise for [address] while taking narcotics. Skin/Wound/Dressing Care Skin care: Empty drain as needed. May shower with drain Report to your healthcare provider any signs of infection, such as:: chills, fever, increased pain and unusual redness Visit Report/Discharge Packet Instructions: Appendicitis, DI for an Appendectomy, DI for Laparoscopy, DI for Omid-Mendez Drains, DI for Prescription Opioid Use, [facility]: Wound Care Visit Report Forms: Patient Portal/API, Stroke Signs & Symptoms Quality VTE Deep Vein Thrombosis/Pulmonary Embolism Present on Admission: No
== END 2020-03-03 15:40 | disposition home or self-care (01) | DRG 339 ==
LOC: ED 13:34 → AC 13:47
PROVIDERS: Admitting Provider Surgery; Emergency Provider Nurse Practitioner Family; Referring Provider Nurse Practitioner Family; Visit Provider Surgery
PROC: 0DTJ4ZZ Resection of Appendix, Percutaneous Endoscopic Approach (ICD-10-PCS; CPT 44970; principal; 2020-02-29 15:45)
DX: K35.32 Acute appendicitis with perforation, localized peritonitis, and gangrene, without abscess (principal); Z68.42 Body mass index [BMI] 45.0-49.9, adult; R33.8 Other retention of urine; E66.9 Obesity, unspecified; Z11.59 Encounter for screening for other viral diseases
CPT/HCPCS: 36415; 36592; 44970; 74177; 80048; 80053; 83605; 83690; 85025; 85610; 85730; 87635; 93005; 94762; 96374; 99221; 99284; J0330; J1100; J1170; J1650; J1885; J2250; J2405; J2543; J2704; J3010; Q9967

== ENCOUNTER → 2020-03-09 11:17 | Outpatient (CLI) | payer OTHER, SELFPAY ==
[2020-03-03 13:07] VITALS: BMI 45.1
[2020-03-09 12:34] LABS: Add Manual Diff / Slide Review NO; Basophils Absolute Auto 100 /uL (0-100); Basophils Percent Auto 0.6 % (0-2); Eosinophils Absolute Auto 100 /uL (0-450); Eosinophils Percent Auto 1.3 % (2-4); Hematocrit 40.4 % (41-53); Hemoglobin 13.9 g/dL (13.5-17.5); Lymphocytes Absolute Auto 1200 /uL (1100-4500); Lymphocytes Percent Auto 10.2 % (25-40); Mean Corpuscular HGB Conc 34.4 % (30-36); Mean Corpuscular Volume 87.4 fL (80-100); Monocytes Absolute Auto 700 /uL (0-900); Monocytes Percent Auto 5.8 % (3-14); Neutrophils Absolute Auto 9500 /uL (1500-7000); Neutrophils Percent Auto 82.1 % (50-75); Platelet Count 306 X10^3/uL (150-400); Red Blood Cell Count 4.62 X10^6/uL (4.5-5.9); Red Cell Distribution Width 12.3 % (11.6-14.8); White Blood Cell Count 11.6 X10^3/uL (4.5-11.0)
== END ==
PROVIDERS: Referring Provider Surgery; Visit Provider Surgery
DX: K35.80 Unspecified acute appendicitis (principal)
CPT/HCPCS: 36415; 85025